=== PATIENT | female | born 1965 | race Caucasian/White ===

== ENCOUNTER 2017-12-03 11:32 | Emergency (ER) | payer OTHER ==
[2017-12-03] MEDS ORDERED: SODIUM CHLORIDE 1,000 ML IV STA (11:37)
[2017-12-03] MEDS ORDERED: FAMOTIDINE 20 MG/50 ML IVPB 20 MG/50 ML MG IVPB ONE ×2 (11:39→12:07)
--- NOTE | 2017-12-03 11:42 | PDOC ---
History of Present Illness - General Chief Complaint: Chest Pain Stated Complaint: CHEST PAIN Time Seen by Provider: 12/03/17 11:36 History Source: Patient Exam Limitations: No Limitations - History of Present Illness Initial Comments: 12/03/17 11:43 This is a 52 YOF with h/o primary immune deficiency, lyme encephalitis (3 years ago), superficial thrombophlebitis, and ADHD (on Adderall) who p/w gradual onset of sharp substernal chest pain radiating to her right shoulder for the past hour which began while she was picking her son up in her vehicle (not exerting herself). She took 3 baby ASA at home and states that her symptoms have somewhat improved since that time. She has had associated shortness of breath, lightheadedness, and sweats. She additionally notes recent metallic taste in her mouth. She has never had symptoms like this before. She denies any h/o cardiac issues, estrogen or control pill use, calf pain/swelling, prolonged immobilization, recent surgeries or injuries, or other symptoms. She has been under a great deal of stress lately with her her. Her is also getting psychiatric testing today which is making her more stressed. Past History - Past Medical History Allergies/Adverse Reactions: Allergies Allergy/AdvReac Type Severity Reaction Status Date / Time codeine Allergy Verified 12/03/17 11:33 Home Medications: Ambulatory Orders Aspirin [ASA -] 324 mg PO ASDIR 01/03/16 Dextroamphetamine/Amphetamine [Adderall Xr 20 mg Capsule] 20 mg PO DAILY COPD: No Psychiatric Problems: Yes Other medical history: H/O ADVANCED NEURAL LYME - 3 YRS AGO - Immunization History Immunization Up to Date: No - Suicide/Smoking/Psychosocial Hx Smoking History: Never smoked Have you smoked in the past 12 months: No Number of Cigarettes Smoked Daily: 0 Information on smoking cessation initiated: No Hx Alcohol Use: No Drug/Substance Use Hx: No Substance Use Type: None Review of Systems - Review of Systems Able to Perform ROS?: Yes Constitutional: Yes: Diaphoresis. No: Chills, Fever, Unexplained wgt Loss HEENTM: No: Nose Congestion, Throat Pain Respiratory: Yes: Shortness of Breath. No: Cough Cardiac (ROS): Yes: Chest Pain, Lightheadedness. No: Palpitations ABD/GI: No: Constipated, Diarrhea, Nausea, Vomiting : No: Burning, Dysuria Musculoskeletal: No: Back Pain, Neck Pain Integumentary: No: Bruising, Rash Neurological: No: Headache, Numbness, Tingling, Weakness Psychiatric: Yes: Stressors Endocrine: No: Unexplained Weight Gain, Unexplained Weight Loss *Physical Exam - Vital Signs Last Vital Signs Temp Pulse Resp BP Pulse Ox 98.8 F 96 H 18 125/57 100 12/03/17 11:32 12/03/17 11:32 12/03/17 11:32 12/03/17 11:32 12/03/17 11:32 - Physical Exam General Appearance: Yes: Nourished, Moderate Distress, Other (nontoxic appearing adult female who is brought in leaning on her teenage son and appearing a bit unsteady on her feet walking into the department, tachypneic, clutching chest with hand, but calms down after being placed into exam room and having vitals taken, answers questions appropriately, son at bedside who is supportive and tearful) HEENT: positive: EOMI, RYAN, Normal Voice, Hearing Grossly Normal. negative: Scleral Icterus (R), Scleral Icterus (L), Nasal Congestion Neck: positive: Trachea midline, Supple. negative: Tender, Rigid Respiratory/Chest: positive: Lungs Clear, Normal Breath Sounds, Rapid RR. negative: Respiratory Distress, Crackles, Rhonchi, Stridor, Wheezing Cardiovascular: positive: Regular Rhythm, S1, S2, Tachycardia (mild). negative : Edema, JVD, Murmur Gastrointestinal/Abdominal: positive: Normal Bowel Sounds, Flat, Soft. negative : Tender, Organomegaly, Pulsatile Mass, Guarding Musculoskeletal: positive: Normal Inspection. negative: Decreased Range of Motion, Vertebral Tenderness Extremity: positive: Normal Capillary Refill, Normal Inspection, Normal Range of Motion, Other (calf circumference roughly equal). negative: Tender, Cyanosis , Swelling, Calf Tenderness Integumentary: positive: Normal Color, Dry, Warm. 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 negative: EOM Palsy, Facial Droop, Numbness, Sensory Deficit, Confused, Disoriented Heart Score/ECG Review - History History: Moderately suspicious - Electrocardiogram EKG: Normal - Age Age: 45-65 - Risk Factors Based on the list above the patient has:: No risk factors known - Troponin Troponin: </= normal limit - Score Heart Score - Total: 2 #1 12/03/17 12:03 Sinus rhythm, rate of 86, normal axis and intervals, no ischemic ST-T changes ED Treatment Course - LABORATORY CBC & Chemistry Diagram: 12/03/17 12:05 12/03/17 12:05 - ADDITIONAL ORDERS Additional order review: Laboratory Results 12/03/17 12/03/17 12/03/17 15:00 15:00 14:33 PT with INR INR Sodium Potassium Chloride Carbon Dioxide Anion Gap BUN Creatinine Creat Clearance w eGFR Random Glucose Calcium Magnesium Total Bilirubin AST ALT Alkaline Phosphatase Creatine Kinase Troponin I < 0.03 Total Protein Albumin Lipase Urine Color Yellow Urine Appearance Clear Urine pH 6.5 Ur Specific [place] <= 1.005 Urine Protein Negative Urine Glucose (UA) Negative Urine Ketones Negative Urine Blood Trace-intact H Urine Nitrite Negative Urine Bilirubin Negative Urine Urobilinogen 0.2 Ur Leukocyte Esterase Negative Blood Type A NEGATIVE Antibody Screen 12/03/17 12/03/17 12/03/17 12:05 12:05 12:05 PT with INR INR Sodium Potassium Chloride Carbon Dioxide Anion Gap BUN Creatinine Creat Clearance w eGFR Random Glucose Calcium Magnesium Total Bilirubin AST ALT Alkaline Phosphatase Creatine Kinase 70 Troponin I < 0.03 Total Protein Albumin Lipase Urine Color Urine Appearance Urine pH Ur Specific [place] Urine Protein Urine Glucose (UA) Urine Ketones Urine Blood Urine Nitrite Urine Bilirubin Urine Urobilinogen Ur Leukocyte Esterase Blood Type A NEGATIVE Antibody Screen Negative 12/03/17 12/03/17 12:05 12:05 PT with INR 10.6 INR 0.95 L Sodium 136 Potassium 3.9 Chloride 106 Carbon Dioxide 23 Anion Gap 7 L BUN 13 Creatinine 0.8 Creat Clearance w eGFR > 60 Random Glucose 88 Calcium 8.7 Magnesium 1.8 Total Bilirubin 0.5 AST 19 D ALT 15 Alkaline Phosphatase 49 Creatine Kinase Troponin I Total Protein 6.5 Albumin 3.8 Lipase 170 Urine Color Urine Appearance Urine pH Ur Specific [place] Urine Protein Urine Glucose (UA) Urine Ketones Urine Blood Urine Nitrite Urine Bilirubin Urine Urobilinogen Ur Leukocyte Esterase Blood Type Antibody Screen 12/03/17 12:05 RBC 4.03 MCV 83.4 MCHC 32.0 RDW 14.1 D MPV 7.8 Neutrophils % 55.2 Lymphocytes % 28.2 Monocytes % 13.6 H Eosinophils % 2.2 Basophils % 0.8 - RADIOLOGY Radiology Studies Ordered: Category Date Time Status CHEST X-RAY PORTABLE* [RAD] Stat Radiology 12/03/17 11:38 Completed - Medications Given in the ED: ED Medications Discontinued Medications Generic Name Dose Route Start Last Admin Trade Name [place] PRN Reason Stop Dose Admin Acetaminophen 1,000 mg 12/03/17 11:59 12/03/17 12:19 Ofirmev Injection - IVPB 12/03/17 12:00 1,000 mg ONCE ONE Administration Famotidine/Sodium Chloride 20 mg in 50 mls @ 100 mls/hr 12/03/17 11:39 12:15 Pepcid 20 Mg Premixed Ivpb - IVPB 12/03/17 12:08 100 mls/hr ONCE ONE Administration Sodium Chloride 1,000 mls @ 1,000 mls/hr 12/03/17 11:37 12/03/17 12:15 Normal Saline - IV 12/03/17 12:36 1,000 mls/hr ASDIR STA Administration Medical Decision Making - Medical Decision Making Adult female Pt with primary immune deficiency p/w chest pain. Initial Vital Signs Temp Pulse Resp BP Pulse Ox 98.8 F 96 H 18 125/57 100 12/03/17 11:32 12/03/17 11:32 12/03/17 11:32 12/03/17 11:32 12/03/17 11:32 Exam: As noted in Physical Exam section. DDX IBNLT: ACS, PE, gastritis, PUD, pancreatitis, pericarditis, tamponade, aortic dissection, AAA, PTX, esophageal tear, esophagitis (e.g. pill, infectious ), esophageal stricture, esophageal FB, cholecystitis, cholangitis, colitis, bowel perforation, PNA/bronchitis, pleurisy, pleuritis, MVP, pulmonary HTN, musculoskeletal, panic/anxiety, etc. W/U ordered: CBCD CMP Lipase Troponin CK CKMB Coags T&S UA UCx EKG CXR. TX ordered: monitor, IVF, Ofirmev, Pepcid EKG: Reviewed; results as noted in ECG Review section. CXR: Nothing acute. Laboratory Tests 12/03/17 12/03/17 12/03/17 12:05 12:05 12:05 WBC 6.6 RBC 4.03 Hgb 10.8 Hct 33.6 MCV 83.4 MCH 26.7 D MCHC 32.0 RDW 14.1 D Plt Count 368 MPV 7.8 Absolute Neuts (auto) 3.6 Neutrophils % 55.2 Lymphocytes % 28.2 Monocytes % 13.6 H Eosinophils % 2.2 Basophils % 0.8 PT with INR 10.6 INR 0.95 L Sodium 136 Potassium 3.9 Chloride 106 Carbon Dioxide 23 Anion Gap 7 L BUN 13 Creatinine 0.8 Creat Clearance w eGFR > 60 Random Glucose 88 Calcium 8.7 Magnesium 1.8 Total Bilirubin 0.5 AST 19 D ALT 15 Alkaline Phosphatase 49 Creatine Kinase Troponin I Total Protein 6.5 Albumin 3.8 Lipase 170 12/03/17 12/03/17 12:05 12:05 WBC RBC Hgb Hct MCV MCH MCHC RDW Plt Count MPV Absolute Neuts (auto) Neutrophils % Lymphocytes % Monocytes % Eosinophils % Basophils % PT with INR INR Sodium Potassium Chloride Carbon Dioxide Anion Gap BUN Creatinine Creat Clearance w eGFR Random Glucose Calcium Magnesium Total Bilirubin AST ALT Alkaline Phosphatase Creatine Kinase 70 Troponin I < 0.03 Total Protein Albumin Lipase D-dimer <200 per slabber (there have been difficulties with emergency providers seeing [facility] Reassessment: Patient states feeling much better, repeat troponin <0.03. Repeat VS: DISCHARGE Repeat cardiac enzymes are negative. No new abnormal rhythms have been observed on the cardiac care unit nurse. On last reassessment VS are stable, Pts pain is resolved, and exam is benign. The Pts HEART score indicates they are low risk and do not require admission currently. The Pt is appropriate for discharge with close outpatient follow up. Cardiology referral information is given. They are comfortable with this plan and will follow up with their PCP in 1-3 days. Specific return precautions are discussed and they will come back to the ER if necessary. *DC/Admit/Observation/Transfer Diagnosis at time of Disposition: SOB (shortness of breath) Chest pain Qualifiers: Chest pain type: unspecified Qualified Code(s): R07.9 - Chest pain, unspecified - Discharge Dispostion Disposition: HOME Condition at time of disposition: Stable Decision to Admit order: No - Referrals Referrals: Alexis Wright MD [Staff Physician] - - Patient Instructions Printed Discharge Instructions: DI for Chest Pain Additional Instructions: You were seen in the ER for chest pain. We did lab work on your blood and urine , an electrocardiogram, and a chest x-ray, and we did not find any concerning abnormalities. Your symptoms improved with the medications we gave you in the ER. After our assessment, we do not believe you are having a medical emergency at this time, and we believe you are safe to go home. Please take over-the- counter medications for the pain, and you can try an [id number] antacid like omeprazole 20 mg once a day. Please follow up with your regular PCP doctor in 1-3 days. You can also make an appointment with our maintenance supervisor mechanical if you have more symptoms - we are giving you his information. Call their clinic as soon as possible, tell them you were seen in the ER, and tell them you need an appointment. If you have any new or worsening symptoms, especially worsening chest pain, jaw pain, shoulder/arm pain, shortness of breath, sweats, nausea, loss of consciousness, palpitations, or other symptoms, please come back to the ER at any time (24 hours a day). If you are having severe or life threatening symptoms, or symptoms that make it unsafe to drive or have someone drive you, please call 911. - Post Discharge Activity
[2017-12-03 11:50] VITALS: BMI 25.8
--- NOTE | 2017-12-03 11:56 | PDOC ---
Attending Attestation - Resident Resident Name: BoyerCharlotte - ED Attending Attestation I have performed the following: I have examined & evaluated the patient, The case was reviewed & discussed with the resident, I agree w/resident's findings & plan - HPI HPI: 12/03/17 17:15 Velas[place] 52 YOF with h/o ADHD, depression, primary immune deficiency, MS, Lyme disease, CVA/TIA, asthma, superficial thrombophlebitis of the upper extremities (July,) presenting with anterior/substernal CP radiating to right shoulder x 1 hour since [employer]. since resolving; a/w lightheadedness. +bilateral ankle and hand swelling this morning when she woke up, but resolved. Took ASA [employer]. +stressors in life currently, including divorce with . No neuro changes, respiratory sx, vomiting or diarrhea. No recent infectious sx, no travel or prolonged immobilization. - Physicial Exam PE: 12/03/17 17:15 NAD, well appearing, MMM, nl conjunctiva, anicteric; neck supple, no JVD, no carotid bruit.. lungs clear, RRR, no reproducible chest wall tenderness. abdomen soft nontender. SAUCEDA x4, no focal neuro deficits. No peripheral edema. normal color for ethnicity, [facility]. - Medical Decision Making 12/03/17 11:55 Velasco 52 YOF with h/o ADHD, depression, primary immune deficiency, MS, Lyme disease, CVA/TIA, asthma, superficial thrombophlebitis of the upper extremities (July,) presenting with anterior/substernal CP x 1 hour [employer], since improving. DDx includes ACS, angina, chest pain NOS, costochondritis, GERD, pleurisy, anxiety, esophageal spasm. Low suspicion for pulmonary embolism or dissection. vital signs stable, wnl, HR >90s, normal sats. EKG sinus rhythm with nonspecific T wave abnormalities, no ST segment derangements/elevations or interval abnormalities. cannot PERC out, h/o CVA/TIA and superficial thrombophlebitis - send off D dimer.. basic labs wnl. dimer negative, so lower probability of dissection /PE. CXR unremarkable. trop neg x2, chest pain resolved. HEART score 1, so low risk group for MACE at 30 days. given tylenol and GI cocktail/IVF with relief of sx. Pt informed of my clinical impression, treatment recommendations and disposition plan. All questions answered to patient's satisfaction and she expressed understanding and comfort with this. Reasons for returning to the ED sooner discussed with the patient otherwise, follow up with her primary care physician, cardiology referral given. At the time of discharge, the patient is alert, improved, tolerating po and understands instructions. 12/03/17 17:17 Heart Score/ECG Review - History History: Slightly suspicious - Electrocardiogram EKG: Normal - Age Age: 45-65 - Risk Factors Based on the list above the patient has:: No risk factors known - Troponin Troponin: </= normal limit - Score Heart Score - Total: 1 - ECG Impressions Normal ECG: Yes Comment:: 12/03/17 17:16 EKG NSR at 86 bpm, nonspecific flattening in V1-2, AVL/III, no depressions or ST segment elevations.
[2017-12-03] MEDS ORDERED: ACETAMINOPHEN 1000 MG/100 ML VIAL (NON FORMULARY) IVPB ONE (11:59)
[2017-12-03] MEDS ORDERED: ACETAMINOPHEN INJECTION 100 ML IVPB ONE (12:07)
[2017-12-03 12:14] LABS: BASO % 0.8 % (0-2.0); EOS % 2.2 % (0-4.5); HEMATOCRIT 33.6 % (32.4-45.2); HEMOGLOBIN 10.8 GM/dl (10.7-15.3); LYMPH % 28.2 % (8-40); MCH 26.7 pg (25.7-33.7); MEAN CELL VOLUME 83.4 fl (80-96); MEAN PLT VOLUME 7.8 fl (7.5-11.1); MONO % 13.6 % (3.8-10.2); NEUT % 55.2 % (42.8-82.8); PLATELET COUNT 368 K/MM3 (134-434); RBC 4.03 M/mm3 (3.60-5.2); RDW 14.1 % (11.6-15.6); WHITE BLOOD COUNT 6.6 K/mm3 (4.0-10.8)
[2017-12-03 12:19] LABS: INR 0.95 (0.82-1.09); PROTHROMBIN TIME (PATIENT) 10.6 SEC (10.2-13.0)
[2017-12-03 12:27] LABS: ALBUMIN 3.8 g/dl (3.5-5.0); ALK PHOS 49 U/L (32-92); ANION GAP 7 (8-16); BILIRUBIN,TOTAL 0.5 mg/dl (0.2-1.0); BLOOD UREA NITROGEN 13 mg/dl (7-18); CALCIUM 8.7 mg/dl (8.4-10.2); CHLORIDE 106 mmol/L (98-107); CO2 23 mmol/L (22-28); CREATININE 0.8 mg/dl (0.6-1.3); GLUCOSE,RANDOM 88 mg/dl (74-106); MAGNESIUM 1.8 mg/dL (1.8-2.4); POTASSIUM 3.9 mmol/L (3.5-5.1); SGOT/AST 19 U/L (10-42); SGPT/ALT 15 U/L (10-40); SODIUM 136 mmol/L (136-145); TOT PROT 6.5 g/dl (6.4-8.3)
[2017-12-03 13:40] LABS: LIPASE 170 U/L (73-393)
[2017-12-03 15:21] LABS: PH,URINE 6.5 (4.5-8); URINE APPEARANCE Clear; URINE BILIRUBIN Negative (NEGATIVE); URINE COLOR Yellow; URINE GLUCOSE (UA) Negative (NEGATIVE); URINE KETONE Negative (NEGATIVE); URINE LEUK ESTERASE Negative (NEGATIVE); URINE NITRITE Negative (NEGATIVE); URINE PROTEIN Negative (NEGATIVE); URINE UROBILINOGEN 0.2 (0.2-1.0)
[2017-12-03 16:17] VITALS: BP 109/70; PULSE 84; TEMP 98.1
[2017-12-03 17:09] LABS: URINE WBC 0-2 (0-5)
--- NOTE | 2017-12-04 10:29 | EKG ---
Test Reason : Blood Pressure : / mmHG Vent. Rate : 089 BPM Atrial Rate : 089 BPM P-R Int : 144 ms QRS Dur : 084 ms QT Int : 364 ms P-R-T Axes : 054 047 050 degrees QTc Int : 442 ms NORMAL SINUS RHYTHM SEPTAL INFARCT (CITED ON OR BEFORE 03-DEC-2017) ABNORMAL ECG WHEN COMPARED WITH ECG OF 03-DEC-2017 11:39, NO SIGNIFICANT CHANGE WAS FOUND Confirmed by MARCIN DIAZ, DONNIE ([id number]) on 12/04/2017 10:28:44 AM Referred By: SHADE HERNANDEZ Confirmed By:DONNIE BURCH MD
== END 2017-12-03 12:20 | disposition home or self-care (01) ==
LOC: FER 11:32
PROC: 3E033NZ Introduction of Analgesics, Hypnotics, Sedatives into Peripheral Vein, Percutaneous Approach (ICD-10-PCS; principal; 2017-12-03)
PROC: 3E033GC Introduction of Other Therapeutic Substance into Peripheral Vein, Percutaneous Approach (ICD-10-PCS; 2017-12-03)
PROC: 3E0337Z Introduction of Electrolytic and Water Balance Substance into Peripheral Vein, Percutaneous Approach (ICD-10-PCS; 2017-12-03)
DX: R42 Dizziness and giddiness (principal); R07.9 Chest pain, unspecified; R06.02 Shortness of breath; G04.81 Other encephalitis and encephalomyelitis; D84.9 Immunodeficiency, unspecified; F90.9 Attention-deficit hyperactivity disorder, unspecified type
CPT/HCPCS: 36415; 71045-TC-FY; 80053; 81003; 81015; 82550; 83690; 83735; 84484; 85025; 85379; 85610; 86850; 86900; 86901; 93005; 99285-25; J0131; J7030